=== PATIENT | female | born 1950 | race Caucasian/White ===

== ENCOUNTER → 2018-02-19 08:25 | Outpatient (CLI) | payer MEDICARE, SELFPAY ==
[2018-02-19 10:32] LABS: Absolute Lymphocyte Count 1.92 X10^3/ul (0.83-4.51); Absolute Neutrophil Count 1.6 X10^3/uL (2.0-7.7); Basophil# 0.06 X10^3/uL; Basophil% 1.4 % (0-1); Eosinophil# 0.25 X10^3/uL; Eosinophils% 5.9 % (0-5); Hematocrit 39.6 % (37-47); Hemoglobin 13.2 g/dl (12.0-15.0); Lymphocyte # 1.92 X10^3/ul (4.0); Lymphocyte % 45.6 % (19-41); Mean Corp Hgb Conc 33.3 g/gl (32-36); Mean Corpuscular Hgb 31.2 pg (27.0-32.0); Mean Corpuscular Volume 93.6 fL (81-99); Mean Platelet Vol. 11.7 fl (6.2-12.0); Monocyte# 0.34 X10^3/uL; Monocyte% 8.1 % (0-10); Neutrophil # 1.64 X10^3/uL (2.7-7.7); Platelet Count 205 K/mm3 (150-450); RBC Distribution Width CV 13.6 % (11.6-14.6); RBC Distribution Width SD 45.3 fl (35.1-43.9); Red Blood Count 4.23 M/mm3 (4.2-5.4); White Blood Count 4.2 K/mm3 (4.4-11.0)
[2018-02-19 10:33] LABS: POSITIVE COUNT NO; POSITIVE DIFFERENTIAL NO; POSITIVE MORPHOLOGY NO
[2018-02-19 10:53] LABS: Vitamin D,25 Hydroxy 30.7 ng/mL (29.95-100.01)
[2018-02-19 11:01] LABS: Anion Gap 9 (5-15); BUN 8 mg/dL (7-18); BUN/Creat Ratio 10.1 RATIO (10-20); Chloride 106 mmol/L (98-107); Cholesterol 220 mg/dL (200); Creatinine, Serum 0.79 mg/dL (0.55-1.02); EST Glomerular Filtration Rate 77 mL/min (>60); Est Glom Filt Rate - Afr Amer 93 mL/min (>60); Glucose 97 mg/dL (74-106); High Density Lipoprotein 77 mg/dL; Potassium 4.6 mmol/L (3.5-5.1); Sodium Level 142 mmol/L (136-145); Triglycerides 98 mg/dL; Very Low Density Lipoprotein 20 mg/dL (5-40)
== END ==
PROVIDERS: Family Provider Family Medicine; PCP Family Medicine; Visit Provider Family Medicine
DX: M79.7 Fibromyalgia (principal); R53.83 Other fatigue; E78.00 Pure hypercholesterolemia, unspecified; M85.80 Other specified disorders of bone density and structure, unspecified site
CPT/HCPCS: 36415; 80048; 80061; 82306; 85025

== ENCOUNTER → 2019-04-16 | Outpatient (CLI) | payer MEDICARE, SELFPAY ==
[2019-04-16 10:18] LABS: Absolute Lymphocyte Count 1.99 X10^3/uL (0.83-4.51); Absolute Neutrophil Count 1.7 X10^3/uL (2.0-7.7); Basophil# 0.03 X10^3/uL; Basophil% 0.7 % (0-1); Eosinophils% 4.7 % (0-5); Hematocrit 42.6 % (37-47); Hemoglobin 13.7 g/dL (12.0-15.0); Lymphocyte # 1.99 X10^3/ul (4.0); Lymphocyte % 46.5 % (19-41); Mean Corp Hgb Conc 32.2 g/dL (32-36); Mean Corpuscular Hgb 30.2 pg (27.0-32.0); Mean Corpuscular Volume 93.8 fL (81-99); Mean Platelet Vol. 11.5 fl (6.2-12.0); Monocyte# 0.31 X10^3/uL; Monocyte% 7.2 % (0-10); Neutrophil # 1.74 X10^3/uL (2.7-7.7); Neutrophil % 40.7 % (47-70); Platelet Count 245 K/mm3 (150-450); RBC Distribution Width CV 13.4 % (11.6-14.6); RBC Distribution Width SD 45.7 fl (35.1-43.9); Red Blood Count 4.54 M/mm3 (4.2-5.4); White Blood Count 4.3 K/mm3 (4.4-11.0)
[2019-04-16 10:36] LABS: Anion Gap 3 (5-15); BUN 9 mg/dL (7-18); BUN/Creat Ratio 11.6 RATIO (10-20); Calcium,Total 9.2 mg/dL (8.5-10.1); Chloride 105 mmol/L (98-107); Cholesterol 233 mg/dL (200); Creatinine, Serum 0.78 mg/dL (0.55-1.02); EST Glomerular Filtration Rate 78 mL/min (>60); Est Glom Filt Rate - Afr Amer 95 mL/min (>60); Glucose 90 mg/dL (74-106); High Density Lipoprotein 82 mg/dL; Sodium Level 138 mmol/L (136-145); Thyroid Stim Hormone (TSH) 3.19 uIU/mL (0.358-3.74); Triglycerides 78 mg/dL; Very Low Density Lipoprotein 16 mg/dL (5-40)
== END | disposition home or self-care (01) ==
LOC: MTLAB 07:08
PROVIDERS: Family Provider Family Medicine; PCP Family Medicine; Referring Provider Family Medicine; Visit Provider Family Medicine
DX: M79.7 Fibromyalgia (principal); E78.00 Pure hypercholesterolemia, unspecified; R53.83 Other fatigue
CPT/HCPCS: 36415; 80048; 80061; 84443; 85025

== ENCOUNTER 2019-11-21 09:48 | Day surgery (SDC) | payer MEDICARE, SELFPAY ==
[2019-11-21] VITALS (7 sets, daily range): BP systolic 128–172; BP diastolic 61–86; PULSE 62–73; RESP 14–16; TEMP 36.4–36.9; O2SAT 99–100; BMI 26.4
[2019-11-21] MEDS: Povidone Iodine 30 ML Opthalmic Sol 1 DRP (10:35)
[2019-11-21] MEDS: Tetracaine 0.5% Ophthalmic Bottle 1 DRP OP (11:43)
--- NOTE | 2019-11-21 12:20 | PCM.DC.CATCL ---
Allergies/Adverse Reactions: Allergies Penicillins Allergy (Verified 11/21/19 10:26) Swelling sulfamethoxazole [From Bactrim] Allergy (Verified 11/21/19 10:26) Unknown trimethoprim [From Bactrim] Allergy (Verified 11/21/19 10:26) Unknown epinephrine Adverse Reaction (Verified 11/21/19 10:26) panic attack Medications to take at Discharge Acetaminophen [Tylenol Extra Strength] 500 - 1,000 mg PO Q6H PRN PRN 11/14/19 Clonazepam 0.5 mg PO BID 11/14/19 Naproxen Sodium [Aleve] 220 mg PO PRN PRN 11/14/19 Propranolol HCl [Inderal] 10 mg PO PRN PRN 11/14/19 Sertraline HCl [Zoloft] 100 mg PO DAILY 11/14/19 cycloBENZAPRine HCl [Flexeril] 10 mg PO PRN PRN 11/14/19 Cataract Instructions: -Take a pain reliever such as Tylenol, Aspirin or Ibuprofen if needed for eye aching or pain. If this is not enough relief for you pain, call your doctor (or the doctor salon assistant), even at night. -You are scheduled for a follow-up appointment at [facility] the day after surgery. You should have someone drive you. -Transient pain and irritation are due to the incision that was made at the time of surgery and do not indicate any trouble. Our office numbers are . If there is no answer, or if it is after our normal business hours, call your surgeon. My home phone number is: Dr. Ana Martin INSTRUCTIONS FOLLOWING TOPICAL ANESTHETIC CATARACT SURGERY Protect operated eye with glasses or metal shield at all times. Instill one drop of Polytrim (or other antibiotic drop), one drop of Prednisolone and one drop of Acular in the operated eye four times a day (breakfast, lunch, dinner, and bedtime) until the doctor tells you to quit or decrease them. Wait 3-5 minutes between each drop. Please begin these immediately upon arriving at home. if your surgery is in t he afternoon, try to use the drops at least three more times the day of surgery and again the following morning before your appointment. INSTRUCTIONS FOLLOWING RETROBULBAR CATARACT SURGERY Keep the eye patch and metal shield on until you see your surgeon the day after surgery - these will be removed in the office that day. Do not drive while the patch is on your eye. You will be instructed about the use of drops for the operated eye at that visit. Primary Care Physician: Jayson Tolliver MD [Primary Care Provider] -
--- NOTE | 2019-11-21 12:20 | PCM.OPRPT ---
Report of Operation Date of Procedure: 11/21/19 Pre-Operative Diagnosis: Cataract OS Post-Operative Diagnosis: same Surgery/Procedure Performed:: PEM IOL OS Description of Surgical Findings:: cataract Type of Anesthesia:: MAC and Topical Anesth Estimated Blood Loss (mL): none Description of Procedure: Indications for procedure: 69 yo female with history of worsening vision in the left eye due to cataract. After discussion of the risks, benefits, alternatives of the procedure the patient agreed to proceed with cataract surgery OS. Description of procedure: The patient was brought to the operating room where a time out was performed before the start of the procedure. Anesthesia team in duced light sedation. The eye was prepped and draped in the usual sterile fashion for eye surgery. A rosaura blade was used to create a paracentesis incision at the inferotemporal limbus. Preservative free lidocaine followed by viscoat was instilled into the anterior chamber. A keratome was used to create a clear corneal biplanar incision at the temporal limbus. A cystotome was used to begin the capsulorhexis and completed using a forceps. BSS was irrigated beneath the capsule until the lens was noted to be freely mobile in the capsular bag. Phacoemulsification was used to remove the lens in a divide and conquer technique. Irrgation and aspiration was used to remove the cortex. The aspiration was not working properly during surgery so the tubing, handpiece, and machine were powered off and restarted. Aspiration was completed uneventfully. Provisc was used to inflate the capsular bag and a tecnis PCBOO 15.5 diopter lens was placed in the capsular bag and adjusted using a dirk hook. The remaining viscoelastic was remove. The wounds were hydrated. 1 10-0 nylon was used to secure the main incision. The wounds were checked and noted to watertight with a weck cell sponge. The patient was taken to the recovery room in a stable condition with instructions to follow up in the clinic the following day. - Complications none - Admit VTE Documentation VTE Present on Admission: No Reason prophylaxis not ordered:: Procedure Not Indicated - patient can ambulate
== END 2019-11-21 13:15 | disposition home or self-care (01) ==
LOC: SDC 09:48 → AC 09:50
PROVIDERS: PCP Family Medicine; Referring Provider Ophthalmology; Visit Provider Ophthalmology
PROC: (CPT 66984; principal; 2019-11-21 11:20)
DX: H26.9 Unspecified cataract (principal); K58.9 Irritable bowel syndrome, unspecified; M19.90 Unspecified osteoarthritis, unspecified site; M79.7 Fibromyalgia; E78.00 Pure hypercholesterolemia, unspecified; M85.80 Other specified disorders of bone density and structure, unspecified site; M25.50 Pain in unspecified joint; F41.1 Generalized anxiety disorder; F40.01 Agoraphobia with panic disorder; Z78.0 Asymptomatic menopausal state; Z79.899 Other long term (current) drug therapy
CPT/HCPCS: 00142; 66984

== ENCOUNTER 2019-12-05 07:46 | Day surgery (SDC) | payer MEDICARE, SELFPAY ==
[2019-11-21 10:27] VITALS: BMI 26.4
[2019-12-05] VITALS (8 sets, daily range): BP systolic 128–149; BP diastolic 64–73; PULSE 67–76; RESP 16–18; TEMP 36.2–37.1; O2SAT 99–100; BMI 26.4
[2019-12-05] MEDS: Tetracaine 0.5% Ophthalmic Bottle 1 DRP OP (09:36)
[2019-12-05] MEDS: Povidone Iodine 30 ML Opthalmic Sol 1 DRP (09:37)
--- NOTE | 2019-12-05 10:13 | DCINST_ITS ---
Allergies/Adverse Reactions: Allergies Penicillins Allergy (Verified 12/05/19 08:18) Swelling sulfamethoxazole [From Bactrim] Allergy (Verified 12/05/19 08:18) Unknown trimethoprim [From Bactrim] Allergy (Verified 12/05/19 08:18) Unknown epinephrine Adverse Reaction (Verified 12/05/19 08:18) panic attack Medications to take at Discharge Acetaminophen [Tylenol Extra Strength] 500 - 1,000 mg PO Q6H PRN PRN 11/14/19 Clonazepam 0.5 mg PO BID 11/14/19 Naproxen Sodium [Aleve] 220 mg PO PRN PRN 11/14/19 Propranolol HCl [Inderal] 10 mg PO PRN PRN 11/14/19 Sertraline HCl [Zoloft] 100 mg PO DAILY 11/14/19 cycloBENZAPRine HCl [Flexeril] 10 mg PO PRN PRN 11/14/19 Ofloxacin 0.3% [Floxin 0.3% Otic] 5 drp OTIC (EAR) 4X/DAY 12/05/19 Prednisolone Acetate/Pf [Prednisolone Acet 1% Eye Drop] 5 ml OP 4X/DAY 12/05/19 Cataract Instructions: -Take a pain reliever such as Tylenol, Aspirin or Ibuprofen if needed for eye aching or pain. If this is not enough relief for you pain, call your doctor (or the doctor termite control representative), even at night. -You are scheduled for a follow-up appointment at [facility] the day after surgery. You should have someone drive you. -Transient pain and irritation are due to the incision that was made at the time of surgery and do not indicate any trouble. Our office numbers are . If there is no answer, or if it is after our normal business hours, call your surgeon. My home phone number is: Dr. Ana Martin INSTRUCTIONS FOLLOWING TOPICAL ANESTHETIC CATARACT SURGERY Protect operated eye with glasses or metal shield at all times. Instill one drop of Polytrim (or other antibiotic drop), one drop of Prednisolone and one drop of Acular in the operated eye four times a day (breakfast, lunch, dinner, and bedtime) until the doctor tells you to quit or decrease them. Wait 3-5 minutes between each drop. Please begin these immediately upon arriving at home. if your surgery is in t he afternoon, try to use the drops at least three more times the day of surgery and again the following morning before your appointment. INSTRUCTIONS FOLLOWING RETROBULBAR CATARACT SURGERY Keep the eye patch and metal shield on until you see your surgeon the day after surgery - these will be removed in the office that day. Do not drive while the patch is on your eye. You will be instructed about the use of drops for the operated eye at that visit. Primary Care Physician: Jayson Tolliver MD [Primary Care Provider] -
--- NOTE | 2019-12-05 10:21 | OP.PCM_ITS ---
Report of Operation Date of Procedure: 12/05/19 Pre-Operative Diagnosis: Cataract Right Eye Post-Operative Diagnosis: same Surgery/Procedure Performed:: PEM IOL OD Description of Surgical Findings:: cataract Type of Anesthesia:: MAC and Topical Anesth Estimated Blood Loss (mL): none Description of Procedure: Indications for procedure: 69 yo female with history or worsening vision in right eye secondary to cataract. After discussion of the risks, benefits, alternatives, or surgery patient agreed to proceed with cataract surgery. Description of procedure: The patient was brought to the operating room where a time out was performed prior to the start of the procedure. Anesthesia team induced light sedation. The eye was prepped and draped in the usual sterile f ashion for eye surgery. A rosaura blade was used to make a paracentesis incision at the limbus. Preservative free lidocaine followed by viscoat was instilled into the anterior chamber. A keratome was used make the incision at the temporal limbus. A cystotome was used to begin the capsulorhexis and completed in the continous curvlinear fashion using forceps. BSS on a agarwal cannula was used to hydrate beneath the lens capsule until it was noted to be freely mobile in the capsular bag. Phacoemulsification was used to remove the lens in a divide and conquer technique. The cortical material was removed using irrigation and aspiration. The capsular bag was intact. Provisc was used to inflate the capsular bag and a 16.0 tecnis PCBOO was placed into the capsular bag and adjusted using the dirk hook. The remaining viscoelastic material was removed. The wounds were hydrated and noted to be watertight at the conclusion of the case. - Complications none - Admit VTE Documentation VTE Present on Admission: No - patient can ambulate
== END 2019-12-05 11:05 | disposition home or self-care (01) ==
LOC: SDC 07:46 → AC 07:47
PROVIDERS: PCP Family Medicine; Referring Provider Ophthalmology; Visit Provider Ophthalmology
PROC: (CPT 66984; principal; 2019-12-05 09:20)
DX: H25.811 Combined forms of age-related cataract, right eye (principal); F41.9 Anxiety disorder, unspecified
CPT/HCPCS: 00142; 66984

== ENCOUNTER → 2020-04-20 07:58 | Outpatient (CLI) | payer MEDICARE, SELFPAY ==
[2019-12-05 08:25] VITALS: BMI 26.4
[2020-04-20 10:55] LABS: ALB/GLOB Ratio 1.3 RATIO (0.9-2.4); AST(SGOT) 17 U/L (15-37); Alanine Aminotransfer ALT/SGPT 20 U/L (13-56); Alkaline Phosphatase 109 U/L (45-117); Anion Gap 4 (5-15); BUN 10 mg/dL (7-18); BUN/Creat Ratio 14.3 RATIO (10-20); Calcium,Total 8.8 mg/dL (8.5-10.1); Chloride 105 mmol/L (98-107); Cholesterol 267 mg/dL (200); EST Glomerular Filtration Rate 88 mL/min (>60); Est Glom Filt Rate - Afr Amer 107 mL/min (>60); Glucose 89 mg/dL (74-106); High Density Lipoprotein 83 mg/dL; Potassium 4.3 mmol/L (3.5-5.1); Sodium Level 139 mmol/L (136-145); Triglycerides 89 mg/dL; Very Low Density Lipoprotein 18 mg/dL (5-40)
== END ==
PROVIDERS: PCP Family Medicine; Referring Provider Family Medicine; Visit Provider Family Medicine
DX: E78.00 Pure hypercholesterolemia, unspecified (principal)
CPT/HCPCS: 36415; 80053; 80061

== ENCOUNTER → 2020-04-27 14:58 | Outpatient (CLI) | payer MEDICARE, SELFPAY ==
[2019-12-05 08:25] VITALS: BMI 26.4
[2020-04-27 18:16] LABS: Vitamin B12 396 pg/mL (211-911); Vitamin D,25 Hydroxy 29.2 ng/mL
[2020-04-27 18:34] LABS: Thyroid Stim Hormone (TSH) 2.82 uIU/mL (0.358-3.74)
== END ==
PROVIDERS: PCP Family Medicine; Referring Provider Family Medicine; Visit Provider Family Medicine
DX: R20.0 Anesthesia of skin (principal); M85.80 Other specified disorders of bone density and structure, unspecified site
CPT/HCPCS: 36415; 82306; 82607; 84443

== ENCOUNTER → 2020-11-18 09:15 | Outpatient (CLI) | payer MEDICARE, SELFPAY ==
[2019-12-05 08:25] VITALS: BMI 26.4
[2020-11-18 11:00] LABS: Cholesterol 277 mg/dL (200); High Density Lipoprotein 93 mg/dL; Triglycerides 111 mg/dL; Very Low Density Lipoprotein 22 mg/dL (5-40)
== END ==
PROVIDERS: PCP Family Medicine; Referring Provider Family Medicine; Visit Provider Family Medicine
DX: E78.5 Hyperlipidemia, unspecified (principal)
CPT/HCPCS: 36415; 80061

== ENCOUNTER → 2021-03-11 12:14 | Outpatient (CLI) | payer MEDICARE, SELFPAY ==
[2019-12-05 08:25] VITALS: BMI 26.4
--- NOTE | 2021-03-11 12:17 | STE_ITS ---
Reason For Study: OWEN Stress Results Maximum Predicted HR: 150 bpm Target HR: 128 bpm % Maximum Predicted HR: 93 % DurationHeart Rate Stage (mm:ss) (bpm) BP Comment BASELINE 86 152/82 STAGE 1 3:00 122 160/70SLIGHT SOB, NO CHEST PAIN STAGE 2 2:33 139 172/76INCREASED SOB, NO CHEST PAIN RECOVERY 86 142/72 Stress Duration: 5:33 mm:ss Maximum Stress HR: 139 bpm Baseline Echocardiogram Findings Stress Echo Wall motion Data Resting WM Intermediate WM Stress WM ECHO/Stress Test Echo w/o Contrast Interpretation Summary Exercise stress echo. 70-year-old woman with a history of dyspnea on exertion. Stress echocardiogram. Resting EKG demonstrates normal sinus rhythm with a rate of 83 bpm normal inter vals are noted resting blood pressure is 152/82 mmHg. The patient exercised according to regul hi Yves protocol for total duration of 5 minutes and 33 seconds. Patient completed 2 minutes and 33 seconds into stage II of the Yves protocol. The maximum heart rate attained was 139 bpm which was 92 % of maximum predicted heart rate the maximum workload was 7 metabolic equivalents. At rest there were no ST or T wave changes noted to suggest ischemia and at peak exercise upsloping ST change s were noted with did not meet the criteria for ischemia. No clinical angina was noted the test was t erminated due to dyspnea. The peak blood pressure was noted to be 172/76 mmHg which was a good b lood pressure response to exercise. Stress echocardiogram. The resting echocardiogram demonstrated mildly reduced global left ventricular systolic function with an estimated ejection fraction of 45%. With exercise there was thickening of all vázquez and reduction of left ventricular cavity size with peaking of ejection fraction at 60%. No new wall motion abnormalities were noted to suggest ischemia. Conclusion: Mild resting cardiomyopathy. Excellent stress test with no evidence of ischemia noted. Mild function aerobic impairment. Ordering Physician: Jayson Tolliver Referring Physician: Jayson Tolliver Performed By: Chuyita Davis RDCS
== END ==
PROVIDERS: PCP Family Medicine; Referring Provider Family Medicine; Visit Provider Family Medicine
DX: R06.02 Shortness of breath (principal)
CPT/HCPCS: 93017; 93350

== ENCOUNTER → 2021-03-19 13:46 | Outpatient (CLI) | payer MEDICARE, SELFPAY ==
[2019-12-05 08:25] VITALS: BMI 26.4
--- NOTE | 2021-03-19 13:50 | ECHOCS_ITS ---
Reason For Study: OWEN Procedure This was a 2D Doppler, Color Flow transthoracic echocardiogram. Contrast injection was performed. Exam performed in department. Left Ventricle Normal LV size. The estimated ejection fraction is 60 %. No evidence for diastolic dysfunction. No regional wall motion abnormalities noted. Right Ventricle Normal RV size. Normal systolic function. Atria Normal left atrium. Normal right atrium. No doppler evidence for ASD. Mitral Valve There is no mitral valve stenosis. Mild (1+) mitral valve insufficiency. Tricuspid Valve There is no tricuspid stenosis. Trivial tricuspid valve insufficiency. Pulmonary artery systolic pressure is 30 mmHg. Aortic Valve Trisinus/trileaflet aortic valve. There is no aortic stenosis. No aortic valve insufficiency. Pulmonic Valve There is no pulmonic valvular stenosis. No pulmonic valve insufficiency. Great Vessels Normal aortic root. Pericardium/Pleural No pericardial effusion. Medication Diluted definity 3ml given slow IV push to enhance endocardial definition. MMode/2D Measurements & Calculations LVIDd: 4.9 cm IVSd: 1.0 cm Ao root diam: 2.6 cm LVIDs: 3.3 cm LVPWd: 0.91 cm RVDd: 2.6 cm FS: 32.3 % LAV(MOD-bp): 36.9 ml LVAd ap4: 27.6 cm2 SV(MOD-sp4): 50.6 ml LAV(MOD-bp) Indexed: 20.5 ml/m2 LVLd ap4: 6.6 cm LAV(MOD-sp2): 32.8 ml EDV(MOD-sp4): 93.4 ml LAV(MOD-sp4): 40.4 ml EDV(sp4-el): 97.7 ml LVAs ap4: 16.9 cm2 LVLs ap4: 5.6 cm ESV(MOD-sp4): 42.7 ml ESV(sp4-el): 43.2 ml EF(MOD-sp4): 54.2 % EF(sp4-el): 55.8 % SV(sp4-el): 54.5 ml LA A4 area: 16.1 cm2 LA dimension(2D): 3.7 cm RA A4 area: 11.1 cm2 Doppler Measurements & Calculations MV E max tung: 80.3 cm/sec Lat Peak E' Tung: 9.3 cm/sec Med Peak E' Tung: 5.3 cm/sec MV A max tung: 86.8 cm/sec E/E' lat: 8.6 E/E' med: 15.2 MV E/A: 0.93 Ao V2 max: 122.9 cm/sec LV V1 max: 92.1 cm/sec PA V2 max: 102.1 cm/sec Ao max P.0 mmHg LV V1 max P.4 mmHg Ao V2 mean: 83.8 cm/sec Ao mean P.1 mmHg Ao V2 VTI: 29.1 cm PI end-d tung: 112.7 cm/sec TR max tung: 262.4 cm/sec TR max P.5 mmHg ECHO/Echo Complete W/ Contrast Interpretation Summary The estimated ejection fraction is 60 %. No evidence for diastolic dysfunction. Mild (1+) mitral valve insufficiency. The study was technically difficult. Contrast injection was performed. Ordering Physician: Jayson Tolliver Referring Physician: Jayson Tolliver Performed By: Maria Del Rosario Pickering, BLANCA, RVT
== END ==
PROVIDERS: PCP Family Medicine; Referring Provider Family Medicine; Visit Provider Family Medicine
DX: R06.02 Shortness of breath (principal)
CPT/HCPCS: 93306; Q9957; C8929; J3490

== ENCOUNTER → 2021-05-13 07:28 | Outpatient (CLI) | payer MEDICARE, SELFPAY ==
[2019-12-05 08:25] VITALS: BMI 26.4
[2021-05-13 10:34] LABS: ALB/GLOB Ratio 1.1 RATIO (0.9-2.4); AST(SGOT) 18 U/L (15-37); Alanine Aminotransfer ALT/SGPT 25 U/L (13-56); Albumin, Serum 4.5 g/dL (3.2-5.0); Alkaline Phosphatase 108 U/L (45-117); Anion Gap 7 (5-15); BUN 11 mg/dL (7-18); Calcium,Total 9.3 mg/dL (8.5-10.1); Chloride 102 mmol/L (98-107); Cholesterol 171 mg/dL (200); Creatinine, Serum 0.73 mg/dL (0.55-1.02); EST Glomerular Filtration Rate 83 mL/min (>60); Est Glom Filt Rate - Afr Amer 101 mL/min (>60); Glucose 84 mg/dL (74-106); High Density Lipoprotein 96 mg/dL; Potassium 3.9 mmol/L (3.5-5.1); Protein, Total 8.5 g/dL (6.4-8.2); Sodium Level 139 mmol/L (136-145); Triglycerides 67 mg/dL; Very Low Density Lipoprotein 13 mg/dL (5-40)
== END ==
PROVIDERS: PCP Family Medicine; Referring Provider Family Medicine; Visit Provider Family Medicine
DX: E78.5 Hyperlipidemia, unspecified (principal)
CPT/HCPCS: 36415; 80053; 80061

== ENCOUNTER → 2021-07-01 10:00 | Outpatient (CLI) | payer MEDICARE, SELFPAY ==
--- NOTE | 2021-07-01 10:03 | MRI_ITS ---
STUDY: MRI BRAIN WITH AND WITHOUT CONTRAST REASON FOR EXAM: Female, 71 years old. VISUAL DISTURBANCE TECHNIQUE: Standardized multiplanar fat and water weighted pulse sequences were obtained. dotarem 14ml IV was administered for the contrast portion of the examination. COMPARISON: None. FINDINGS: Normal size of the ventricles and extra-axial spaces for the patient''s age. Normal white matter tracts of the supratentorial brain. Normal bilateral basal ganglia. Normal thalami. There is no extra-axial fluid accumulation. There is no enhancing intra-axial or extra-axial abnormality. Normal sella turcica, pituitary gland, infundibular stalk, optic chiasm and hypothalamus. Normal tectal plate and pineal gland. Normal midbrain, rosana and medulla. Normal cerebellum. Normal basal cisterns. IMPRESSION: Unremarkable unenhanced and enhanced MRI of the brain. Electronically Signed: Eric Dao MD at 9:18 EDT Tel , Service support , STUDY: MRI ORBITS WITHOUT CONTRAST REASON FOR EXAM: Female, 71 years old. VISUAL DISTURBANCE TECHNIQUE: Standardized multiplanar fat and water weighted pulse sequences were obtained. COMPARISON: None. FINDINGS: Normal bilateral globes. Normal bilateral optic nerve sheath complexes and optic nerves. Normal bilateral intraconal and extraconal spaces. Normal bilateral extraocular muscles. Normal optic chiasm and post-chiasmatic tracts. Normal sella turcica, pituitary gland, infundibular stalk, and hypothalamus. Normal bilateral cavernous sinuses. Normal tectal plate and pineal gland. Normal midbrain, rosana and medulla. Normal cerebellum. Normal basal cisterns. MRI/Brain W/WO Contrast IMPRESSION: Unremarkable unenhanced MRI of the orbits. Electronically Signed: Eric Dao MD at 9:18 EDT Tel , Service support ,
[2021-07-01 10:30] LABS: CREATININE FINGERSTICK < 0.6 mg/dL (0.55-1.02); EGFR FINGERSTICK > 60.0000 mL/min (>60)
== END ==
PROVIDERS: PCP Family Medicine; Referring Provider Family Medicine; Visit Provider Family Medicine
DX: H53.9 Unspecified visual disturbance (principal)
CPT/HCPCS: 70553; A9575

== ENCOUNTER → 2021-08-19 14:04 | Outpatient (CLI) | payer MEDICARE, SELFPAY ==
[2021-08-19 15:11] LABS: Erythrocyte Sedimentation Rate 18 mm/hr (0-30)
[2021-08-19 15:14] LABS: Absolute Neutrophil Count 3.2 X10^3/uL (2.0-7.7); Basophil# 0.05 X10^3/uL; Basophil% 0.8 % (0-1); Eosinophil# 0.28 X10^3/uL; Eosinophils% 4.6 % (0-5); Hematocrit 42.2 % (37-47); Hemoglobin 13.5 g/dL (12.0-15.0); Lymphocyte % 34.5 % (19-41); Mean Corpuscular Hgb 29.6 pg (27.0-32.0); Mean Corpuscular Volume 92.5 fL (81-99); Mean Platelet Vol. 11.6 fl (6.2-12.0); Monocyte# 0.41 X10^3/uL; Monocyte% 6.7 % (0-10); NRBC Flagged by Analyzer 0 % (0-5); Neutrophil # 3.24 X10^3/uL (2.7-7.7); Neutrophil % 53.2 % (47-70); Platelet Count 242 K/mm3 (150-450); RBC Distribution Width CV 13.8 % (11.6-14.6); RBC Distribution Width SD 47.1 fl (35.1-43.9); Red Blood Count 4.56 M/mm3 (4.2-5.4); White Blood Count 6.1 K/mm3 (4.4-11.0)
[2021-08-19 15:32] LABS: Vitamin B12 507 pg/mL (211-911)
[2021-08-19 15:37] LABS: CPK Total, Creatine Kinase 77 U/L (26-192); Cholesterol 177 mg/dL (200); Ferritin 54 ng/mL (8-252); High Density Lipoprotein 89 mg/dL; Magnesium 2.8 mg/dL (1.6-2.6); T4 Free Direct 0.95 ng/dL (0.76-1.46); Thyroid Stim Hormone (TSH) 3.62 uIU/mL (0.358-3.74); Triglycerides 90 mg/dL; Very Low Density Lipoprotein 18 mg/dL (5-40)
[2021-08-25 20:40] LABS: VITAMIN B6 96.5 ug/L (2.0-32.8)
[2021-08-30 18:27] LABS: Vitamin B1, Thiamine 180.9 nmol/L (66.5-200.0)
== END ==
PROVIDERS: PCP Family Medicine; Referring Provider Family Medicine; Visit Provider Family Medicine
DX: I10 Essential (primary) hypertension (principal); E78.5 Hyperlipidemia, unspecified; E55.9 Vitamin D deficiency, unspecified; R25.2 Cramp and spasm; R53.83 Other fatigue
CPT/HCPCS: 36415; 80061; 82306; 82550; 82607; 82728; 83735; 84207; 84425; 84439; 84443; 85025; 85652

== ENCOUNTER → 2022-01-31 | Outpatient (CLI) | payer MEDICARE, SELFPAY ==
[2022-01-31 10:24] LABS: Anion Gap 6 (5-15); BUN 12 mg/dL (7-18); Calcium,Total 8.8 mg/dL (8.5-10.1); Chloride 104 mmol/L (98-107); Cholesterol 182 mg/dL (200); EST Glomerular Filtration Rate 87 mL/min (>60); Est Glom Filt Rate - Afr Amer 105 mL/min (>60); Glucose 88 mg/dL (74-106); High Density Lipoprotein 82 mg/dL; Potassium 3.6 mmol/L (3.5-5.1); Sodium Level 139 mmol/L (136-145); Triglycerides 76 mg/dL; Very Low Density Lipoprotein 15 mg/dL (5-40)
== END | disposition home or self-care (01) ==
LOC: MTLAB 07:23
PROVIDERS: PCP Family Medicine; Referring Provider Family Medicine; Visit Provider Family Medicine
DX: I10 Essential (primary) hypertension (principal)
CPT/HCPCS: 36415; 80048; 80061

== ENCOUNTER → 2022-07-25 | Outpatient (CLI) | payer MEDICARE, SELFPAY ==
[2022-07-25 11:10] LABS: ALB/GLOB Ratio 1.1 RATIO (0.9-2.4); AST(SGOT) 19 U/L (15-37); Alanine Aminotransfer ALT/SGPT 23 U/L (13-56); Albumin, Serum 4.1 g/dL (3.2-5.0); Alkaline Phosphatase 112 U/L (45-117); Anion Gap 6 (5-15); BUN 12 mg/dL (7-18); Calcium,Total 9.5 mg/dL (8.5-10.1); Chloride 105 mmol/L (98-107); Cholesterol 193 mg/dL (200); Creatinine, Serum 0.75 mg/dL (0.55-1.02); EST Glomerular Filtration Rate 81 mL/min (>60); Est Glom Filt Rate - Afr Amer 98 mL/min (>60); Globulin 3.9 g/dL (2.2-4.2); Glucose 107 mg/dL (74-106); High Density Lipoprotein 97 mg/dL; Potassium 3.9 mmol/L (3.5-5.1); Sodium Level 140 mmol/L (136-145); Triglycerides 92 mg/dL; Very Low Density Lipoprotein 18 mg/dL (5-40)
== END | disposition home or self-care (01) ==
LOC: MTLAB 08:09
PROVIDERS: PCP Family Medicine; Referring Provider Family Medicine; Visit Provider Family Medicine
DX: E78.5 Hyperlipidemia, unspecified (principal)
CPT/HCPCS: 36415; 80053; 80061

== ENCOUNTER → 2023-01-20 | Outpatient (CLI) | payer MEDICARE, SELFPAY ==
[2023-01-20 10:33] LABS: ALB/GLOB Ratio 1.2 RATIO (0.9-2.4); AST(SGOT) 22 U/L (15-37); Alanine Aminotransfer ALT/SGPT 23 U/L (13-56); Alkaline Phosphatase 109 U/L (45-117); Anion Gap 3 (5-15); BUN 16 mg/dL (7-18); Calcium,Total 9.3 mg/dL (8.5-10.1); Chloride 105 mmol/L (98-107); Cholesterol 177 mg/dL (200); Creatinine, Serum 0.76 mg/dL (0.55-1.02); EST Glomerular Filtration Rate 79 mL/min (>60); Est Glom Filt Rate - Afr Amer 96 mL/min (>60); Globulin 3.4 g/dL (2.2-4.2); Glucose 102 mg/dL (74-106); High Density Lipoprotein 92 mg/dL; Potassium 3.9 mmol/L (3.5-5.1); Protein, Total 7.4 g/dL (6.4-8.2); Sodium Level 137 mmol/L (136-145); Triglycerides 49 mg/dL; Very Low Density Lipoprotein 10 mg/dL (5-40)
== END | disposition home or self-care (01) ==
PROVIDERS: PCP Family Medicine; Referring Provider Family Medicine; Visit Provider Family Medicine
DX: E78.5 Hyperlipidemia, unspecified (principal)
CPT/HCPCS: 36415; 80053; 80061

== ENCOUNTER → 2023-07-19 | Outpatient (CLI) | payer MEDICARE, SELFPAY ==
[2023-07-19 11:30] LABS: ALB/GLOB Ratio 1.1 RATIO (0.9-2.4); AST(SGOT) 16 U/L (15-37); Alanine Aminotransfer ALT/SGPT 20 U/L (13-56); Albumin, Serum 3.9 g/dL (3.2-5.0); Alkaline Phosphatase 108 U/L (45-117); Anion Gap 5 (5-15); BUN 13 mg/dL (7-18); BUN/Creat Ratio 16.9 RATIO (10-20); Calcium,Total 9.2 mg/dL (8.5-10.1); Chloride 105 mmol/L (98-107); Cholesterol 212 mg/dL (200); Creatinine, Serum 0.77 mg/dL (0.55-1.02); EST Glomerular Filtration Rate 78 mL/min (>60); Est Glom Filt Rate - Afr Amer 95 mL/min (>60); Globulin 3.7 g/dL (2.2-4.2); Glucose 111 mg/dL (74-106); High Density Lipoprotein 90 mg/dL; Potassium 3.9 mmol/L (3.5-5.1); Protein, Total 7.6 g/dL (6.4-8.2); Sodium Level 139 mmol/L (136-145); Triglycerides 73 mg/dL; Very Low Density Lipoprotein 15 mg/dL (5-40)
== END | disposition home or self-care (01) ==
LOC: MTLAB 07:23
PROVIDERS: PCP Family Medicine; Referring Provider Family Medicine; Visit Provider Family Medicine
DX: I10 Essential (primary) hypertension (principal)
CPT/HCPCS: 36415; 80053; 80061

== ENCOUNTER → 2023-12-15 | Outpatient (CLI) | payer MEDICARE, SELFPAY ==
[2023-12-15 17:39] LABS: Absolute Lymphocyte Count 2.55 X10^3/uL (0.83-4.51); Absolute Neutrophil Count 4.4 X10^3/uL (2.0-7.7); Basophil# 0.03 X10^3/uL; Basophil% 0.4 % (0-1); Eosinophil# 0.22 X10^3/uL; Eosinophils% 2.9 % (0-5); Hematocrit 41.2 % (37-47); Hemoglobin 13.1 g/dL (12.0-15.0); Lymphocyte # 2.55 X10^3/ul (0.83-4.51); Lymphocyte % 33.3 % (19-41); Mean Corp Hgb Conc 31.8 g/dL (32-36); Mean Corpuscular Hgb 29.6 pg (27.0-32.0); Mean Platelet Vol. 10.8 fl (6.2-12.0); Monocyte# 0.44 X10^3/uL; Monocyte% 5.8 % (0-10); NRBC Flagged by Analyzer 0 % (0-5); Neutrophil # 4.38 X10^3/uL (2.7-7.7); Neutrophil % 57.2 % (47-70); Platelet Count 318 K/mm3 (150-450); RBC Distribution Width CV 13.5 % (11.6-14.6); Red Blood Count 4.43 M/mm3 (4.2-5.4); White Blood Count 7.7 K/mm3 (4.4-11.0)
[2023-12-15 18:02] LABS: Anion Gap 6 (5-15); BUN 14 mg/dL (7-18); BUN/Creat Ratio 17.4 RATIO (10-20); Calcium,Total 9.3 mg/dL (8.5-10.1); Chloride 102 mmol/L (98-107); EST Glomerular Filtration Rate 74 mL/min (>60); Est Glom Filt Rate - Afr Amer 90 mL/min (>60); Glucose 103 mg/dL (74-106); Potassium 3.8 mmol/L (3.5-5.1); Sodium Level 137 mmol/L (136-145)
== END | disposition home or self-care (01) ==
LOC: MTLAB 16:15
PROVIDERS: PCP Family Medicine; Referring Provider Family Medicine; Visit Provider Family Medicine
DX: I10 Essential (primary) hypertension (principal)
CPT/HCPCS: 36415; 80048; 85025

== ENCOUNTER → 2024-04-24 | Outpatient (CLI) | payer MEDICARE, SELFPAY ==
[2024-04-24 10:45] LABS: AST(SGOT) 20 U/L (15-37); Alanine Aminotransfer ALT/SGPT 24 U/L (13-56); Albumin, Serum 3.7 g/dL (3.2-5.0); Alkaline Phosphatase 110 U/L (45-117); Anion Gap 5 (5-15); BUN 11 mg/dL (7-18); BUN/Creat Ratio 14.1 RATIO (10-20); Calcium,Total 9.3 mg/dL (8.5-10.1); Chloride 104 mmol/L (98-107); Cholesterol 264 mg/dL (200); Creatinine, Serum 0.78 mg/dL (0.55-1.02); EST Glomerular Filtration Rate 77 mL/min (>60); Est Glom Filt Rate - Afr Amer 93 mL/min (>60); Globulin 3.7 g/dL (2.2-4.2); Glucose 104 mg/dL (74-106); High Density Lipoprotein 86 mg/dL; Potassium 4.4 mmol/L (3.5-5.1); Protein, Total 7.4 g/dL (6.4-8.2); Sodium Level 138 mmol/L (136-145); Triglycerides 113 mg/dL; Very Low Density Lipoprotein 23 mg/dL (5-40)
== END | disposition home or self-care (01) ==
LOC: MTLAB 07:48
PROVIDERS: PCP Family Medicine; Referring Provider Family Medicine; Visit Provider Family Medicine
DX: I10 Essential (primary) hypertension (principal)
CPT/HCPCS: 36415; 80053; 80061